=== PATIENT | male | born 1985 | race Caucasian/White ===

== ENCOUNTER 2018-09-21 15:18 | Emergency (ER) | payer SELFPAY ==
[~2018-09-21] VITALS: Ht 177.8 cm; Wt 55.0 kg
[~2018-09-21 15:18] MED LIST: ONDA4TAB14 PO; PANT40TA3 PO
[2018-09-21 15:21] VITALS: BP 148/108; PULSE 117; RESP 16; Ht 177.8 cm; Wt 55.0 kg
[2018-09-21] MEDS ORDERED: FAMOTIDINE 20 MG INJ IV STA (15:41)
[2018-09-21] MEDS ORDERED: ONDANSETRON 4 MG INJ IV STA ×2 (15:41→16:55)
[2018-09-21] MEDS ORDERED: HYDROmorphONE 1 MG/ML SYG IV STA (15:41)
[2018-09-21] MEDS ORDERED: SOD CHLORIDE 0.9% 500 ML IV STA (15:41)
--- NOTE | 2018-09-21 16:59 | ERD ---
ER Documentation Chief Complaint Chief Complaint pt reports he has been vomiting blood since yesterday HPI 32-year-old male presents the emergency department complaining of nausea and vomiting. Patient states he has a history of ulcers. Beginning yesterday, he began having emesis. He complained to the triage nurse of vomiting blood, but denies hematemesis to me stating that it was nonbloody. He reports no diarrhea or black stool. He reports nonspecific epigastric abdominal pain that he states comes along with his history of ulcers. He denies any fevers or chills or diarrhea. He denies any urinary symptoms. Currently he states that his pain is mild to moderate, but he is significant a nauseous. ROS All systems reviewed and are negative except as per history of present illness. Medications Home Meds Active Scripts Pantoprazole* (Protonix*) 40 Mg Tablet.dr, 40 MG PO DAILY, #20 TAB Prov:MONTSERRAT WALTERS 09/21/18 Ondansetron (Ondansetron Odt) 4 Mg Tab.rapdis, 4 MG PO Q6H PRN for NAUSEA AND/OR VOMITING, #10 TAB Prov:MONTSERRAT WALTERS 09/21/18 Allergies Allergies: Coded Allergies: No Known Allergy (Unverified , 09/21/18) PMhx/Soc Medical and Surgical Hx: pt denies Medical Hx, pt denies Surgical Hx Hx Alcohol Use: No Hx Substance Use: No Hx Tobacco Use: No Smoking Status: Never smoker FmHx No history of significant intra-abdominal concerns Physical Exam Vitals Vital Signs Date Temp Pulse Resp B/P (MAP) Pulse Ox O2 O2 Flow FiO2 Time Delivery Rate 09/21/18 99.1 117 16 148/108 100 15:21 (121) Physical Exam GENERAL: Well-developed well-nourished gentleman actively vomiting HEENT: Pupils equal, round, and reactive to light. EOMI. There is no scleral icterus. NECK: C-spine is soft and supple, there is no meningismus. There is no cervical lymphadenopathy. LUNGS: Clear to auscultation bilaterally. There are no rales, wheezes or rhonchi. HEART: Regular rate and rhythm, no murmurs, clicks, rubs or gallops. ABDOMEN: Soft, non-tender, non-distended. There are bowel sounds in all four quadrants. No rebound or guarding. EXTREMITIES: There is no peripheral cyanosis or edema. No focal swelling or erythema. NEURO: The patient moves all four extremities with 5/5 strength. Cranial nerves II - XII are intact. Normal gait. Alert and oriented SKIN: There is no apparent rash or petechiae. HEME/LYMPHATIC: There is no evidence of excessive bruising or lymphedema. PSYCHIATRIC: Patient appears somewhat anxious and histrionic Result Diagram: 09/21/18 1546 09/21/18 1546 Results 24 hrs Laboratory Tests Test 09/21/18 15:46 White Blood Count 8.1 10^3/ul Red Blood Count 5.08 10^6/ul Hemoglobin 15.4 g/dl Hematocrit 45.1 % Mean Corpuscular Volume 88.8 fl Mean Corpuscular Hemoglobin 30.3 pg Mean Corpuscular Hemoglobin Concent 34.1 g/dl Red Cell Distribution Width 12.5 % Platelet Count 314 10^3/UL Mean Platelet Volume 11.0 fl Immature Granulocytes % 0.400 % Neutrophils % 50.7 % Lymphocytes % 37.7 % Monocytes % 10.8 % Eosinophils % 0.2 % Basophils % 0.2 % Nucleated Red Blood Cells % 0.0 /100WBC Immature Granulocytes # 0.030 10^3/ul Neutrophils # 4.1 10^3/ul Lymphocytes # 3.1 10^3/ul Monocytes # 0.9 10^3/ul Eosinophils # 0.0 10^3/ul Basophils # 0.0 10^3/ul Nucleated Red Blood Cells # 0.0 10^3/ul Sodium Level 137 mmol/L Potassium Level 3.7 mmol/L Chloride Level 97 mmol/L Carbon Dioxide Level 24 mmol/L Anion Gap 16 Blood Urea Nitrogen 20 mg/dl Creatinine 0.95 mg/dl Est Glomerular Filtrat Rate mL/min > 60 mL/min Glucose Level 124 mg/dl Calcium Level 10.3 mg/dl Total Bilirubin 0.6 mg/dl Direct Bilirubin 0.00 mg/dl Indirect Bilirubin 0.6 mg/dl Aspartate Amino Transf (AST/SGOT) 28 IU/L Alanine Aminotransferase (ALT/SGPT) 19 IU/L Alkaline Phosphatase 90 IU/L Total Protein 8.9 g/dl Albumin 5.0 g/dl Globulin 3.90 g/dl Albumin/Globulin Ratio 1.28 Lipase 38 U/L Current Medications Medications Dose Sig/Jovi Start Time Status Last (Trade) Ordered Route PRN Stop Time Admin Dose Reason Admin Sodium 500 ml @ Q1H STAT 09/21/18 DC 09/21/18 Chloride 500 mls/hr IV 15:41 15:54 09/21/18 16:40 1 mg ONCE STAT 09/21/18 DC 09/21/18 Hydromorphone IV 15:41 15:53 HCl 09/21/18 15:43 (Dilaudid) Ondansetron 4 mg ONCE STAT 09/21/18 DC 09/21/18 HCl (Zofran IV 15:41 15:54 Inj) 09/21/18 15:43 Famotidine 20 mg ONCE STAT 09/21/18 DC 09/21/18 (Pepcid Iv) IV 15:41 15:54 09/21/18 15:43 Ondansetron 4 mg ONCE STAT 09/21/18 DC HCl (Zofran IV 16:55 Inj) 09/21/18 16:56 Procedures/MDM Patient was taken to a room, seen and evaluated. Comfort measures were initiated. Diagnostic tests were ordered and reviewed. 3 LEAD RHYTHM STRIP: Normal sinus rhythm without ectopy REEVALUATION: 1645: Diagnostic tests were appreciated including a normal hemoglobin. Upon reevaluation, after supportive management, the patient appeared to be clinically well with a benign abdomen. No further vomiting was noted. MEDICAL DECISION MAKIN-year-old male presents the emergency department with vomiting associated with a significantly anxious affect and demeanor. Examination of his abdomen demonstrated no signs of appendicitis and his lab work seems to be low risk with no evidence of pancreatitis or other high-risk concerns. After supportive management, he seems to feel much better his anxiety is much improved. At this time, patient shows no evidence of significant hematemesis with a normal hemoglobin. Patient has had a recent endoscopy demonstrating the ulcers with no other safe and high risk lesion. Patient is appropriate for outpatient supportive care. Departure Diagnosis: Primary Impression: Abdominal pain Condition: Stable Patient Instructions: Abdominal Pain Additional Instructions: See your doctor for follow-up as discussed. Take a copy of your test results, if appropriate, to this follow-up visit. See your doctor or return here if your symptoms do not improve as expected. At any time, please return to the emergency department for any change or worseni ng in her symptoms. MONTSERRAT WALTERS Sep 21, 2018 16:59
== END 2018-09-21 17:57 | disposition home or self-care (01) ==
LOC: E/R 15:18
DX: R11.2 Nausea with vomiting, unspecified (principal); R10.9 Unspecified abdominal pain
CPT/HCPCS: 36415; 80053; 83690; 85025; 96374; 96375; 96376; 99284; J1170; J2405; J7040